=== PATIENT | male | born 1985 | race Caucasian/White ===

== ENCOUNTER 2019-09-04 07:41 | Emergency (ER) | payer SELFPAY ==
[~2019-09-04] VITALS: Ht 175.3 cm; Wt 86.4 kg
[2019-09-04 07:42] VITALS: BP 147/99
== END 2019-09-04 08:04 | disposition home or self-care (01) ==
LOC: ER 07:42
DX: J06.9 Acute upper respiratory infection, unspecified (principal); I10 Essential (primary) hypertension; Z88.1 Allergy status to other antibiotic agents
CPT/HCPCS: 99281